=== PATIENT | female | born 1990 ===

== ENCOUNTER 2021-11-15 12:17 | Inpatient (IN) | payer SELFPAY ==
[2021-11-15] MEDS ORDERED: LACTATED RINGERS 500 ML IV ONE (15:00)
--- NOTE | 2021-11-15 16:17 | Ultrasound Report ---
ULTRASOUND BIOPHYSICAL PROFILE INDICATION: hx demise. COMPARISON: None available. FINDINGS: breathing movement = 2 Gross body movement = 2 tone = 2 Qualitative amniotic fluid volume = 2 Total biophysical score = 8/8 Amniotic fluid index is 14.9 cm. Presentation is Transverse. heart rate is 136 beats per minute. IMPRESSION: biophysical profile = 11/12 Amniotic fluid index is 14.9 cm, within normal limits. lie is currently transverse. Signer Name: Ernie Villalta MD Signed: 11/15/2021 4:13 PM Workstation Name: [email or web address]
[2021-11-15] MEDS: LACTATED RINGERS 1,000 ML IV SCH ×2 (17:00→17:44)
[2021-11-15] MEDS ORDERED: FAMOTIDINE 20 MG/2 ML INJ IV ONE (17:28)
[2021-11-15 17:55] LABS: Basophils # (Auto) 0.1 K/mm3 (0.0-0.1); Basophils % (Auto) 0.7 % (0.0-1.8); Eosinophils % (Auto) 0.3 % (0.0-4.3); Hematocrit 41.7 % (30.3-42.9); Hemoglobin 13.5 gm/dl (10.1-14.3); Lymphocytes # (Auto) 2.5 K/mm3 (1.2-5.4); Mean Corpuscular HGB Conc 32 % (30-34); Mean Corpuscular Volume 88 fl (79-97); Monocytes # (Auto) 0.6 K/mm3 (0.0-0.8); Platelet Count 260 K/mm3 (140-440); Red Blood Count 4.77 M/mm3 (3.65-5.03); Red Cell Distribution Width 16.5 % (13.2-15.2)
[2021-11-15] MEDS ORDERED: METOCLOPRAMIDE 10 MG/2 ML INJ IV ONE (18:00)
[2021-11-15] MEDS ORDERED: D5W/LACTATED RINGERS 1,000 ML IV SCH (18:00)
[2021-11-15] MEDS ORDERED: OXYTOCIN DRIP 30 UNITS/500 ML BAG IV SCH (18:00)
[2021-11-15] MEDS ORDERED: BICITRA ORAL LIQD 30ML PO ONE (18:00)
[2021-11-15] MEDS ORDERED: ACETAMINOPHEN 500 MG TAB PO ONE (23:48)
--- NOTE | 2021-11-15 23:57 | Ultrasound Report ---
ULTRASOUND OBSTETRIC COMPLETE INDICATION / CLINICAL INFORMATION: EFW position. Clinical Gestational Age (GA) in weeks, days: 38 weeks 2 days TECHNIQUE: Transabdominal. COMPARISON: None available. FINDINGS: NUMBER: Single PRESENTATION: breech PLACENTA: Posterior. AMNIOTIC FLUID VOLUME: Largest vertical pocket measures 7.4 cm. MEASUREMENTS: - Biparietal Diameter = 10 cm = 41 weeks 2 days - Head Circumference = 35.5 cm = 40 weeks 4 days - Abdominal Circumference = 37.8 cm = 41 weeks 6 days - Femur Length = 7.3 cm = 37 weeks 2 days - Estimated Weight (in grams, if calculated): 4230 - Heart Rate (beats per minute): 149 ADDITIONAL FINDINGS: None. PERCENTILE ESTIMATED WEIGHT (if calculated): 99% AVERAGE ULTRASOUND AGE (AUA) in weeks, days = 40 weeks 4 days IMPRESSION: Single intrauterine in breech presentation. Ultrasound age of 40 weeks and 4 days. Estimate d weight of 4230 g (99 percentile) Signer Name: Clayton Strong MD Signed: 11/15/2021 11:53 PM Workstation Name: [email or web address] [id number]
--- NOTE | 2021-11-16 02:01 | History and Physical Report ---
History of Present Illness Date of examination: 11/16/21 Date of admission: 11/16/2021 Chief complaint: Contractions History of present illness: 31 y/o at 38-2/7 weeks presents to OB triage reporting irregular and painful contractions. There is no leaking of fluid. There is no vaginal bleeding. There is good movement. Patient has a history of a previous delivery. She also has a history of a previous intrauterine demise. In OB triage, cervix was closed and had no cervical change despite observation. Therefore, labor was ruled out. Biophysical profile was 8/8. However, ultrasound revealed that the position was transverse lie and then subsequently breech position. Furthermore, the ultrasound revealed that the estimated weight was in the 99th percentile. A review of the records revealed that this patient did not have a 1 hour glucose tolerance test (or 3-hour glucose tolerance test). Hemoglobin A1c is 6.3. Clinically, I am very concerned that this patient may have undiagnosed gest ational diabetes. A 3-hour glucose tolerance test is ordered for 9 AM this morning. Fasting and 2-hour postprandial Accu-Cheks are ordered. If this patient does garment turner to have gestational diabetes after the above testing is performed, then it is reasonable to move forward with repeat delivery at this gestational age secondary to poorly controlled gestational diabetes, macrosomia, and unstable lie. Alternatively, if this patient does garment turner to have gestational diabetes after the above testing performed, then admission to the antepartum unit for therapy with insulin and monitoring until 39 weeks followed by repeat delivery is equally as reasonable. Consider maternal- medicine consultation if required. The patient is admitted to labor and delivery for evaluation for gestational diabetes and subsequent management of the above. Past History Past Medical History: no pertinent history Past Surgical History: section Family/Genetic History: none Social history: no significant social history - Obstetrical History Expected Date of Delivery: 11/28/21 Actual Gestation: 38 Week(s) 2 Day(s) : 2 Para: 1 Hx # Term Pregnancies: 1 Number of Pregnancies: 0 Spontaneous Abortions: 0 Induced : 0 Number of Living Children: 0 Medications and Allergies Allergies Allergy/AdvReac Type Severity Reaction Status Date / Time No Known Allergies Allergy Unverified 11/15/21 14:51 Active Meds: Active Medications Dextrose/Lactated Ringer's (D5lr) 1,000 mls @ 0 mls/hr IV DIRECT SHELLEY Stop: 11/16/21 19:59 Lactated Ringer's (Lactated Ringers) 1,000 mls @ 2,250 mls/hr IV PREOP SHELLEY Stop: 11/16/21 17:57 Last Admin: 11/15/21 17:44 Dose: 2,250 mls/hr Oxytocin/Sodium Chloride (Pitocin/Ns 30 Unit/500ml) 30 units in 500 mls @ 0 mls/hr IV TITR SHELLEY; Protocol Review of Systems All systems: negative - Vital Signs Vital signs: Vital Signs Pulse Pulse Ox 83 97 11/15/21 13:37 11/15/21 13:37 Temp Pulse Resp BP Pulse Ox 98.4 F 93 H 16 109/59 98 11/15/21 17:55 11/16/21 01:54 11/15/21 17:55 11/16/21 00:46 11/16/21 01:54 - Physical Exam Breasts: Positive: normal Cardiovascular: Regular rate Lungs: Positive: Normal air movement Abdomen: Positive: normal appearance Genitourinary (Female): Positive: normal external genitalia, normal perenium Vulva: both: normal Vagina: Positive: normal moisture Uterus: Positive: enlarged Adnexa: both: normal Anus/Rectum: Positive: normal perianal skin Extremities: Positive: normal Deep Tendon Reflex Grade: Normal +2 - Obstetrical FHR: category 1 Uterine Contraction Monitor Mode: External Cervical Dilatation: 0 Cervical Effacement Percentage: 50 station: -3 Uterine Contraction Pattern: Irregular Uterine Contraction Intensity: Moderate Results Result Diagrams: 11/15/21 16:55 Abnormal lab results 11/15/21 11/15/21 11/15/21 Range/Units 16:55 16:55 23:54 RDW 16.5 H (13.2-15.2) % POC Glucose 66 L (70-105) mg/dL Hemoglobin A1c 6.3 H (4-6) % All other labs normal. Ultrasound: report reviewed (OB US Limited= SLIUP. Transverse lie, then breech. Posterior placenta. EFW= 4230 g (99th %-ile). MANUELITO= 14.9 cm.), image reviewed, other (BPP= 11/12) Assessment and Plan - Patient Problems (1) 38 weeks gestation of Current Visit: Yes Status: Acute Plan to address problem: care is at [facility]. The patient is GBS positive. A 1 hour glucose tolerance test (or 3-hour glucose tolerance test) was not performed. (2) Abnormal laboratory test result Current Visit: Yes Status: Acute Plan to address problem: Hemoglobin A1c is 6.3. Clinically, I am very concerned that this patient may have undiagnosed gestational diabetes. A 3-hour glucose tolerance test is ordered for 9 AM this morning. Fasting and 2-hour postprandial Accu-Cheks are ordered. If this patient does garment turner to have gestational diabetes after the above testing is performed, then it is reasonable to move forward with repeat delivery at this gestational age secondary to poorly controlled gestational diabetes, macrosomia, and unstable lie. Alternatively, if this patient does garment turner to have gestational diabetes after the above testing performed, then admission to the antepartum unit for therapy with insulin and monitoring until 39 weeks followed by repeat [place] ro[place] is equally as reasonable. Consider maternal- medicine consultation if required. (3) Unstable lie with complication Current Visit: Yes Status: Acute Plan to address problem: ultrasound was transverse lie at first and then follow-up ultrasound revealed breech presentation. Regardless, the route of delivery is repeat delivery. (4) History of IUFD Current Visit: Yes Status: Acute Plan to address problem: The patient's previous gestation was an intrauterine demise at 39 weeks with preeclampsia. Delivery is medically indicated at 39 weeks gestation, or earlier if there are other clinical comorbidities. (5) LGA (large for gestational age) fetus affecting mother, antepartum Current Visit: Yes Status: Acute (6) Previous delivery affecting , antepartum Current Visit: Yes Status: Acute Plan to address problem: Route of delivery is repeat delivery. (7) GBS (group B Streptococcus carrier), +RV culture, currently Current Visit: Yes Status: Acute Plan to address problem: The patient is GBS positive. However, the route of delivery is delivery. As such, intrapartum GBS prophylaxis with penicillin would not be indicated unless the patient desired a trial labor after (TOLAC). (8) False labor after 37 weeks of gestation without delivery Current Visit: Yes Status: Acute Plan to address problem: Despite contractions that are painful, the cervix is closed.
[2021-11-16] MEDS ORDERED: METHYLERGONOVINE MALEATE 0.2 MG/ML VIAL IM PRN (02:02)
[2021-11-16] MEDS ORDERED: CARBOPROST TROMETHAMINE 250 MCG/1 ML INJ IM PRN (02:02)
[2021-11-16] MEDS ORDERED: fentaNYL 100 MCG/2 ML INJ IV PRN (02:02)
[2021-11-16] MEDS ORDERED: ACETAMINOPHEN 325 MG TAB PO PRN ×2 (02:02→20:45)
[2021-11-16] MEDS ORDERED: BUTORPHANOL 2 MG/1 ML INJ IV PRN (02:02)
[2021-11-16] MEDS ORDERED: LACTATED RINGERS 1,000 ML IV SCH (02:15)
[2021-11-16] MEDS ORDERED: OXYTOCIN DRIP 30 UNITS/500 ML BAG IV SCH ×3 (03:00→20:45)
[2021-11-16] MEDS ORDERED: BICITRA ORAL LIQD 30ML PO NR (09:30)
[2021-11-16] MEDS ORDERED: METOCLOPRAMIDE 10 MG/2 ML INJ IV NR (09:30)
[2021-11-16] MEDS ORDERED: FAMOTIDINE 20 MG/2 ML INJ IV NR (09:30)
--- NOTE | 2021-11-16 11:25 | Event Note ---
Date: 11/16/21 pt evaluated and pt drank the drink for 3hrgtt as ordered by previous provider. Consents obtained for repeat c/section and same to be done in the main OR. FHR remains category I and no contractions seen. All risks, benefits and alternatives of procedure discussed. All questions encouraged and answered.
[2021-11-16] MEDS ORDERED: miSOPROStol 200 MCG TAB ONE (11:45)
[2021-11-16] MEDS ORDERED: ONDANSETRON 4 MG/2 ML INJ ONE (13:20)
[2021-11-16] MEDS ORDERED: ePHEDrine SULFATE 50 MG/1 ML INJ ONE (13:21)
[2021-11-16] MEDS: LACTATED RINGERS 1,000 ML IV SCH ×2 (14:48→23:53)
[2021-11-16] MEDS ORDERED: KETOROLAC 30 MG/1 ML INJ ONE (16:50)
[2021-11-16] MEDS ORDERED: WATER FOR IRRIG STERILE 1,500 ML BOTTLE IR ONE (17:00)
[2021-11-16] MEDS ORDERED: SODIUM CHLORIDE 0.9% IRR 1,500 ML BOTTLE IR ONE (17:00)
[2021-11-16] MEDS ORDERED: fentaNYL 100 MCG/2 ML INJ ONE (17:11)
[2021-11-16] MEDS ORDERED: HYDROmorphone 1 MG/1 ML INJ ONE (17:26)
--- NOTE | 2021-11-16 18:05 | Progress Note ---
Regional Anesthesia Block - Regional Anesthesia Block Start Time: 17:40 Stop Time: 17:49 Performed By:: BERTO MAYNARD Procedure: UG Hugo TAP blocks, tray well, 0.25% bupi 25 ml to each side, total 50 ml. $ inch needle echogenic, neg heme, neg aspiration
--- NOTE | 2021-11-16 18:09 | Procedure Note ---
OB Delivery Note - Delivery Date of Delivery: 11/16/21 Surgeon: ANAMARIA HUGHES Estimated blood loss: other (1450cc by QBL above my estimate) - Section Preop diagnosis: repeat , breech, other (Abnormal glucose tolerance with abnormal 1hrgtt; H/O demise at term) Postop diagnosis: same section procedure: repeat low transverse Disposition: floor Complications: none Narrative: Date: 11/16/21 Surgeon: Anamaria Hughes MD Preop Dx: IUP at term, breech presentation, previous term midline skin scar c/section with demise; Glucose intolerance with abnormal 1hrgtt Postop Dx: same with complete breech Procedure : Repeat Low transverse section Anesthesia: Spinal Intake: 1500cc Output: 200cc clear urine EBL: 1450cc by QBL above my estimate After the risks, benefits and alternatives of procedure discussed, patient signed consents and was taken to the operating room. Pt was given spinal anesthesia. After same was adequate, patient was prepped and draped in the usual sterile fashion. Perry catheter in place and draining clear urine. Pt was given prophylactic antibiotic per protocol and time out was done Pfannenstiel skin incision was made and taken sharply to the fascia and the incision extended using electrocautery. Superior edge of the fascia was grasped with osmany clamps and the rectus muscle using blunt dissection and also using electrocautery. Lower portion of the fascia also sharply. Rectus muscle in the midline and Peritoneal cavity entered sharply, lysis of intra-abdominal adhesions sharply and then same extended with good visualization of the bladder. Nima retractor placed without difficulty. The bladder flap was created sharply using metzenbaum scissors. Lower uterine segment then entered transversely and amniotic sac entered using allys clamps. Uterine incision extended using bandage scissors. Infant complete breech delivered with both feet, then sacrum, the upper extrem, head flexed and delivered without difficulty, bulb suctioned, cord clamped and baby handed to waiting pediatricians. Placenta then delivered completely and uterine cavity cleared of all clots and debri. The uterus was not exteriorized and closed in 2 layers using 0-monocryl suture in a running locked fashion and then an additional layer of figure of 8 sutures x 5. Excellent hemostasis noted. Surgicel powder placed. The gutters were cleared of clots and debri and anterior peritoneum and rectus muscle reapproximated using 0-vicryl suture in a continuous fashion. Rectus fascia closed with 0-vicryl suture in a continous fashion after bleeding noted to left lower rectus muscle and hemostasis achieved with 2-figure of 8 sutures and electrocautery. The subcutaneous tissue copiously irrigated with normal saline and re-approximated using 3-0 vicryl suture. Excellent hemostasis remains. The skin was closed with 4-0 monocryl suture and steristrips placed with pressure dressing. Sponge, lap, instrument and needle counts x3 were normal. Patient tolerated the procedure well and was taken to recovery room stable. Findings: Viable male infant, complete breech, APGARS 8/9 and weight 4080g. Normal uterus, tubes and ovaries intra-abdominal adhesions. - A at 1 minute: 8 at 5 minutes: 9 Infant Gender: Male (breech; wt 4080g)
[2021-11-16 20:14] LABS: Alanine Aminotransferase 9 units/L (7-56); Albumin 2.6 g/dL (3.9-5); Blood Urea Nitrogen 9 mg/dL (7-17); Calcium 8.3 mg/dL (8.4-10.2); Hemolysis Index 1
[2021-11-16 20:22] LABS: BUN/Creatinine Ratio 23
[2021-11-16] MEDS ORDERED: LANOLIN/ZINC/DIMETHICONE (LANSINOH) 7 GM TP PRN (20:45)
[2021-11-16] MEDS ORDERED: IBUPROFEN 600 MG TAB PO PRN (20:45)
[2021-11-16] MEDS ORDERED: WITCH HAZEL/ GLYCERIN PAD TP PRN (20:45)
[2021-11-16] MEDS ORDERED: MAGNESIUM HYDROXIDE (MOM) ORAL LIQD UDC PO PRN (20:45)
[2021-11-16] MEDS ORDERED: SIMETHICONE 80 MG CHEW TAB PO PRN (20:45)
[2021-11-16] MEDS ORDERED: PROMETHAZINE 25 MG RECT SUPP PR PRN (20:45)
[2021-11-16] MEDS ORDERED: ONDANSETRON 4 MG/2 ML INJ IV PRN (20:45)
[2021-11-16] MEDS ORDERED: NALOXONE 0.4 MG/1 ML INJ IV PRN (20:45)
[2021-11-16] MEDS ORDERED: SENNOSIDES 8.6 MG TAB PO PRN (20:45)
[2021-11-16] MEDS ORDERED: HYDROCORTISONE 25 MG RECTAL SUPP PR PRN (20:45)
[2021-11-16] MEDS ORDERED: MORPHINE 4 MG/1 ML INJ IV PRN (20:45)
[2021-11-16 20:46] LABS: Basophils % (Auto) 0.3 % (0.0-1.8); Eosinophils % (Auto) 0.2 % (0.0-4.3); Hemoglobin 11.7 gm/dl (10.1-14.3); Lymphocytes # (Auto) 1.9 K/mm3 (1.2-5.4); Lymphocytes % (Auto) 13.3 % (13.4-35.0); Mean Corpuscular HGB Conc 33 % (30-34); Mean Corpuscular Volume 87 fl (79-97); Monocytes # (Auto) 0.8 K/mm3 (0.0-0.8); Monocytes % (Auto) 5.6 % (0.0-7.3); Platelet Count 224 K/mm3 (140-440); Red Blood Count 4.14 M/mm3 (3.65-5.03); Red Cell Distribution Width 16.6 % (13.2-15.2)
[2021-11-17 03:15] LABS: Uric Acid 4.2 mg/dL (3.5-7.6)
[2021-11-17] MEDS: oxyCODONE /ACETAMINOPHEN 5-325MG TAB PO PRN ×4 (03:59→22:07)
--- NOTE | 2021-11-17 08:38 | Progress Note ---
Assessment and Plan A: POD # 1 - stable P: Continue post op care Ambulate Subjective - Subjective Date of service: 11/17/21 Principal diagnosis: POD # 1 - repeat & Breech Patient reports: appetite normal [place]: doing well Objective - Vital Signs Latest vital signs: Vital Signs Temp Pulse Resp BP BP Pulse Ox Pulse Ox 11/17/21 04:49 98.3 F 90 20 127/82 97 11/17/21 03:59 20 11/17/21 01:20 98.7 F 82 20 139/72 97 11/16/21 20:50 98.5 F 82 20 132/73 97 97 11/16/21 20:00 97.8 F 97 H 19 124/69 98 11/16/21 19:45 96 H 24 122/67 98 11/16/21 19:30 107 H 22 121/67 98 11/16/21 19:15 24 125/67 98 11/16/21 19:00 98.5 F 15 122/63 95 11/16/21 18:55 97 H 20 122/63 98 11/16/21 18:50 91 H 22 128/73 99 11/16/21 18:45 98.2 F 86 20 124/63 99 11/16/21 18:40 88 27 H 128/58 98 11/16/21 18:35 94 H 19 134/70 98 11/16/21 18:30 81 26 H 133/64 98 11/16/21 18:25 84 17 137/50 99 11/16/21 18:20 89 25 H 143/68 100 11/16/21 18:15 81 17 142/60 100 11/16/21 18:10 83 29 H 144/64 99 11/16/21 18:05 82 21 137/70 99 11/16/21 18:00 97.8 F 79 20 151/75 99 11/16/21 15:40 80 113/69 11/16/21 15:34 72 99 11/16/21 15:29 97 H 99 11/16/21 15:24 76 98 11/16/21 15:19 79 99 11/16/21 15:14 86 98 11/16/21 15:09 82 98 11/16/21 15:04 83 98 11/16/21 14:59 81 98 11/16/21 14:54 80 98 11/16/21 14:49 75 98 08/12/22 14:44 81 98 11/16/21 14:39 78 98 11/16/21 14:34 77 98 11/16/21 14:29 80 98 11/16/21 14:24 81 99 11/16/21 14:19 95 H 97 11/16/21 14:12 76 99 11/16/21 14:07 75 98 11/16/21 14:02 78 98 11/16/21 13:57 78 98 11/16/21 13:52 81 98 11/16/21 13:47 93 H 98 11/16/21 13:42 78 97 11/16/21 13:37 76 98 11/16/21 13:32 86 97 11/16/21 13:27 81 98 11/16/21 13:22 79 98 11/16/21 13:17 78 98 11/16/21 13:12 77 99 11/16/21 13:07 73 98 11/16/21 13:02 73 98 11/16/21 12:57 88 97 11/16/21 12:52 80 97 11/16/21 12:47 89 99 11/16/21 12:41 95 H 96 11/16/21 12:36 98 H 96 11/16/21 12:31 93 H 95 11/16/21 12:30 93 H 94 11/16/21 12:26 93 H 99 11/16/21 12:21 97 H 97 11/16/21 12:16 105 H 97 11/16/21 12:11 80 98 11/16/21 12:06 85 98 11/16/21 12:01 74 86 11/16/21 11:56 88 95 11/16/21 11:49 84 99 11/16/21 11:43 97 H 99 11/16/21 11:40 117 H 0 L 11/16/21 11:28 109 H 90 11/16/21 11:26 101 H 99 11/16/21 11:23 95 H 93 11/16/21 11:21 86 96 11/16/21 11:16 91 H 99 11/16/21 11:13 88 94 11/16/21 11:11 93 H 100 11/16/21 11:06 88 100 11/16/21 11:04 90 11/16/21 11:01 93 H 94 11/16/21 10:56 97 H 99 11/16/21 10:52 90 87 11/16/21 10:51 91 H 100 11/16/21 10:46 78 100 11/16/21 10:41 82 99 11/16/21 10:40 82 91 11/16/21 10:36 67 100 11/16/21 10:29 79 99 11/16/21 10:24 78 100 11/16/21 10:19 78 99 11/16/21 10:14 80 100 11/16/21 10:09 70 98 11/16/21 10:08 86 11/16/21 09:59 86 11/16/21 09:57 91 H 100 11/16/21 09:52 92 H 100 11/16/21 09:46 49 L 96 11/16/21 09:45 78 91 11/16/21 09:41 88 99 11/16/21 09:36 85 100 11/16/21 09:30 86 100 11/16/21 09:25 85 99 11/16/21 09:14 88 99 11/16/21 09:09 82 100 11/16/21 09:04 82 99 11/16/21 09:01 98.6 F 11/16/21 08:59 89 98 11/16/21 08:54 67 82 L 11/16/21 08:47 52 L 88 11/16/21 08:45 89 100 11/16/21 08:40 98 H 99 11/16/21 08:35 81 98 Intake and Output 11/16/21 11/17/21 11/17/21 22:59 06:59 14:59 Intake Total 2700 360 Output Total 600 900 Balance 2100 -540 Intake: IV 2700 Lactated Ringers 1,000 ml 1000 @ 2250 mls/hr IV PREOP [facility] Rx#:[id number] Intake, Free Water 360 Output: Urine 600 900 Indwelling 200 Indwelling Catheter 900 Other: Total, Output Amount 900 Estimated Blood Loss 1,450 - Exam Breasts: Present: deferred Cardiovascular: Present: Regular rate Lungs: Present: Clear to auscultation Abdomen: Present: soft Vulva: both: normal Uterus: Present: fundal height below umbilicus Extremities: Present: normal Deep Tendon Reflex Grade: Normal +2 Incision: Present: normal - Labs Labs: Abnormal lab results 11/16/21 11/16/21 11/16/21 Range/Units 10:49 19:41 19:41 WBC 13.9 H (4.5-11.0) K/mm3 RDW 16.6 H (13.2-15.2) % Lymph % (Auto) 13.3 L (13.4-35.0) % Seg Neutrophils % 80.6 H (40.0-70.0) % Seg Neutrophils # 11.2 H (1.8-7.7) K/mm3 Potassium 3.5 L (3.6-5.0) mmol/L Carbon Dioxide 19 L (22-30) mmol/L Creatinine 0.4 L (0.6-1.2) mg/dL POC Glucose 64 L (70-105) mg/dL Calcium 8.3 L (8.4-10.2) mg/dL Total Protein 5.0 L (6.3-8.2) g/dL Albumin 2.6 L (3.9-5) g/dL 11/16/21 Range/Units 21:20 WBC (4.5-11.0) K/mm3 RDW (13.2-15.2) % Lymph % (Auto) (13.4-35.0) % Seg Neutrophils % (40.0-70.0) % Seg Neutrophils # (1.8-7.7) K/mm3 Potassium (3.6-5.0) mmol/L Carbon Dioxide (22-30) mmol/L Creatinine (0.6-1.2) mg/dL POC Glucose 63 L (70-105) mg/dL Calcium (8.4-10.2) mg/dL Total Protein (6.3-8.2) g/dL Albumin (3.9-5) g/dL
[2021-11-17] MEDS: FERROUS SULFATE 325 MG TAB PO SCH (10:25)
[2021-11-17] MEDS: PRENATAL VIT27-FE FUMARATE-FOLIC ACID VIT TAB PO SCH (10:25)
[2021-11-17] MEDS: IBUPROFEN 800 MG TAB PO PRN (13:02)
[2021-11-17 15:19] LABS: Basophils % (Auto) 0.1 % (0.0-1.8); Eosinophils % (Auto) 0.5 % (0.0-4.3); Hematocrit 32.4 % (30.3-42.9); Hemoglobin 10.6 gm/dl (10.1-14.3); Lymphocytes # (Auto) 2.2 K/mm3 (1.2-5.4); Lymphocytes % (Auto) 22.8 % (13.4-35.0); Mean Corpuscular HGB Conc 33 % (30-34); Mean Corpuscular Volume 88 fl (79-97); Monocytes # (Auto) 0.5 K/mm3 (0.0-0.8); Monocytes % (Auto) 4.9 % (0.0-7.3); Platelet Count 198 K/mm3 (140-440); Red Cell Distribution Width 16.6 % (13.2-15.2)
[2021-11-18] MEDS: oxyCODONE /ACETAMINOPHEN 5-325MG TAB PO PRN (05:15)
--- NOTE | 2021-11-18 07:35 | Progress Note ---
Assessment and Plan A: POD # 2- Stable P: Pt desires discharge home today Discharge instructions given F/U with Kayce in 2 weeks for incision check Subjective - Subjective Principal diagnosis: POD # 2 - repeat & Breech Patient reports: appetite normal : doing well Objective - Vital Signs Latest vital signs: Vital Signs Temp Pulse Resp BP Pulse Ox Pulse Ox 11/18/21 05:15 18 11/18/21 01:06 97.3 F L 66 18 133/74 98 11/17/21 22:07 20 11/17/21 20:10 98 11/17/21 13:03 98.1 F 83 18 131/77 98 11/17/21 08:17 98.1 F 71 18 128/75 95 11/17/21 08:00 98 Intake and Output 11/17/21 11/18/21 11/18/21 22:59 06:59 14:59 Intake Total 840 Output Total 200 Balance 640 Intake: Oral 360 Intake, Free Water 480 Output: Urine 200 Void 200 Other: Total, Intake Amount 360 Total, Output Amount 200 # Voids Void 2 - Exam Breasts: Present: deferred Cardiovascular: Present: Regular rate Lungs: Present: Clear to auscultation Abdomen: Present: soft Vulva: both: normal Uterus: Present: fundal height below umbilicus Extremities: Present: normal Deep Tendon Reflex Grade: Normal +2 - Labs Labs: Abnormal lab results 11/17/21 Range/Units 14:10 RDW 16.6 H (13.2-15.2) % Seg Neutrophils % 71.7 H (40.0-70.0) %
--- NOTE | 2021-11-18 07:37 | Discharge Summary ---
Providers - Providers Date of Admission: 11/16/21 02:03 Date of discharge: 11/18/21 Attending physician: ITZ HUGHES Primary care physician: ITZ HUGHES Hospitalization Reason for admission: section Delivery: Procedure: section Discharge diagnosis: IUP at term delivered [place] baby: male Condition at discharge: Good Disposition: 01 HOME / SELF CARE / HOMELESS Plan - Discharge Medications Prescriptions: Ibuprofen [Motrin] 800 mg PO Q8HR PRN 21 Days #40 tablet PRN Reason: Pain, Moderate (4-6) oxyCODONE /ACETAMINOPHEN [Percocet 5/325] 1 tab PO Q4HR PRN 21 Days #30 tab PRN Reason: Pain , Severe (7-10) - Provider Discharge Summary Activity: routine, no sex for 6 weeks, no strenuous exercise Diet: routine Instructions: routine Additional instructions: [] Smoking cessation referral if applicable(refer to patient education folder for contact #) [] Refer to [facility] Booklet Call your doctor immediately for: * Fever > 100.5 * Heavy vaginal bleeding ( >1 pad per hour) * Severe persistent headache * Shortness of breath * Reddened, hot, painful area to leg or breast * Drainage or odor from incision. * Keep incision clean and dry at all times and follow doctor's instructions r egarding bathing/showering - Follow up plan Follow up: ITZ HUGHES MD [Primary Care Provider] - 14 Days
[2021-11-18] MEDS: FERROUS SULFATE 325 MG TAB PO SCH (09:23)
[2021-11-18] MEDS: PRENATAL VIT27-FE FUMARATE-FOLIC ACID VIT TAB PO SCH (09:23)
[2021-11-18] MEDS: IBUPROFEN 800 MG TAB PO PRN (09:23)
[2021-11-18] MEDS ORDERED: LACTULOSE 20 GM/30 ML ORAL LIQD PO PRN (13:40)
--- NOTE | 2021-11-18 13:44 | Event Note ---
Date: 11/18/21 pt evaluated and she has not passed flatus since her surgery. Her abdomen has mild distension. Will give lactulose (nurse preference because MOM not effective) orally and if positive flatus, pt may go home, otherwise, pt to be discharge tomorrow. Incision with steristrips C/D/I. all questions encouraged and answered.
--- NOTE | 2021-11-18 15:19 | Event Note ---
Date: 11/18/21 nurse just called to let me know that pt has passed gas and desires to go home. pt may now be discharged with previous order already placed by [facility].
[2021-11-18 17:28] VITALS: BP 141/81
== END 2021-11-18 16:08 | disposition home or self-care (01) | DRG 788 ==
LOC: TRG 12:17 → APU 13:37 → TRG 11-16 02:02 → LD 11-16 02:03 → APU 11-16 15:51 → OB 11-16 20:54
PROVIDERS: ADMIT Obstetrics & Gynecology; ATTEND Obstetrics & Gynecology
PROC: 10D00Z1 Extraction of Products of Conception, Low, Open Approach (ICD-10-PCS; principal; 2021-11-16)
DX: O32.1XX0 Maternal care for breech presentation, not applicable or unspecified (principal); O99.824 Streptococcus B carrier state complicating childbirth; Z20.822 Contact with and (suspected) exposure to COVID-19; Z37.0 Single live birth; Z3A.38 38 weeks gestation of pregnancy; O36.63X0 Maternal care for excessive fetal growth, third trimester, not applicable or unspecified; O34.211 Maternal care for low transverse scar from previous cesarean delivery; O99.814 Abnormal glucose complicating childbirth
CPT/HCPCS: 36415; 76815; 76816; 76819; 80053; 82951; 82962; 83036; 83615; 84550; 85025; 86850; 86900; 86901; G0378; J3490; J0690; J1170; J1885; J2405; J2765; J3010; J7120; U0003